=== PATIENT | female | born 1990 | race African-American/Black ===

== ENCOUNTER 2020-11-05 14:17 | Outpatient (CLI) | payer OTHER ==
--- NOTE | 2020-11-05 15:09 | MRI ---
EXAM: MRI right knee PROVIDED CLINICAL HISTORY: Pain COMPARISON: None FINDINGS: The anterior cruciate ligament, posterior cruciate ligament, medial collateral ligament and lateral c ollateral ligamentous complex demonstrate an intact MR appearance, as does the extensor mechanism. The medial and lateral menisci demonstrate no evidence for tear. There is lateral patellar tilt and patella aixa. There is lateralization of the tibial tubercle (TT-T G distance approximately 21 mm). Articular cartilage appears without full-thickness defect. There is signal inhomogeneity and partial- thickness fissuring involving the lateral patellar facet and median ridge. The amount of fluid within the knee joint appears physiologic. No focal concerning regional marrow or muscular signal abnormality is evident. There is edema within the lateral infrapatellar fat. IMPRESSION: 1. Findings compatible with patellar tracking abnormality. Consider orthopedic consultation. 2. Patellar chondrosis.
== END 2020-11-05 14:18 | disposition home or self-care (01) ==
LOC: BICMRI 14:17
PROVIDERS: ATTEND Family Medicine
DX: M25.561 Pain in right knee (principal); M23.91 Unspecified internal derangement of right knee